=== PATIENT | female | born 1980 | race African-American/Black ===

== ENCOUNTER 2016-09-01 10:42 | Emergency (ER) | payer SELFPAY ==
[2016-09-01] VITALS (7 sets, daily range): BP systolic 91–151; BP diastolic 57–101; PULSE 81–102; RESP 16; TEMP 97.8; O2SAT 99
[~2016-09-01] VITALS: Ht 165.1 cm; Wt 108.0 kg
[~2016-09-01 10:42] MED LIST: AMLO10TA2 PO; HYDR-3288 PO; HYDR25TA5 PO; IPRA0.02 NEB; ONDA1TAB16 PO; OXYC1TAB35 PO
[2016-09-01] MEDS ORDERED: SODIUM CHLOR 0.9% 1000 ML INJ 1,000 ML IV ONE (11:11)
[2016-09-01] MEDS ORDERED: ONDANSETRON HCL 4 MG/2 ML VIAL IVP ONE (11:15)
[2016-09-01] MEDS ORDERED: MECLIZINE HCL 25 MG TAB PO ONE (11:15)
[2016-09-01] MEDS ORDERED: SODIUM CHLORIDE 0.9% FLUSH 10 ML FLUSH IVF PRN (11:15)
--- NOTE | 2016-09-01 11:20 | PD ---
HPI Chief Complaint: Syncope/Near-Syncope Time Seen by Provider: 11:08 Travel History International Travel<30 days: No Contact w/Intl Traveler<30days: No Traveled to known affect area: No History of Present Illness HPI This is a 36-year-old female with history of hypertension and asthma who presents via EMS for evaluation of syncopal event. The patient reports that she was at [facility] today picking up her prescription for her blood pressure medication when she became dizzy. She describes the dizziness as a room spinning sensation. She was speaking someone when she had a syncopal event which was witnessed. There was no reported seizure activity. The patient is currently continuing to have a vertigo-like sensation. She also endorses a headache and chest pain which started yesterday. The headache is frontal, pressure type sensation, constant, no limiting factors. She has also had a sharp substernal chest pain that is worse with inspiration. She endorses some nausea as well as some shortness of breath, decreased appetite over the past few days. Denies vomiting, diarrhea or constipation, vaginal bleeding or discharge, abdominal pain, fevers or chills, recent illness. Last menstrual period was approximately 1.5 months ago. Denies history of DVT/PE. No other complaints. PFSH Past Medical History Asthma: Yes Blood Disorders: No Depression: Yes Heart Rhythm Problems: No Cancer: No Cardiac Catheterization: No Cardiovascular Problems: No High Cholesterol: No Chemotherapy: No Chest Pain: Yes (ATYPICAL) Congestive Heart Failure: No COPD: No Cerebrovascular Accident: No Diabetes: No Diminished Hearing: No Endocrine: No GERD: No Glaucoma: No Genitourinary: No Hepatitis: No Hiatal Hernia: No Hypertension: No Immune Disorder: No Kidney Stones: No Neurologic: No Psychiatric: No Respiratory: Yes (ASTHMA) Immunizations Current: Yes Myocardial Infarction: No Radiation Therapy: No Renal Failure: No Seizures: Yes ( CHILD. PER PT NONE ADULT) Sleep Apnea: No Thyroid Disease: No Ulcer: No : 2 Para: 0 Miscarriage: 2 : 0 Ectopic : Yes Tubal Ligation: Yes Past Surgical History Abdominal Surgery: No AICD: No Cardiac Surgery: No Coronary Artery Bypass Graft: No Ear Surgery: No Endocrine Surgery: No Eye Surgery: No Genitourinary Surgery: Yes (RIGHT OOPHORECTOMY R/T TUBAL 2000) Gynecologic Surgery: No Joint Replacement: No Oral Surgery: No Pacemaker: No Thoracic Surgery: No Social History Alcohol Use: No Tobacco Use: No Substance Use: No Allergies-Medications (Allergen,Severity, Reaction): Coded Allergies: No Known Allergies (Verified , 01/28/16) Reported Meds & Prescriptions Reported Meds & Active Scripts Active [place] (Hydrocodone-Acetaminophen) 7.5-325 mg Tab 1-2 Tab PO Q4H PRN Reported Ipratropium Neb (Ipratropium [place]) 0.5 Mg/2.5 Ml Amp 0.5 Mg NEB Q6HR NEB PRN Amlodipine (Amlodipine Besylate) 10 Mg Tab 10 Mg PO DAILY Hydrochlorothiazide 25 Mg Tab 25 Mg PO DAILY Ondansetron (Ondansetron HCl) 4 Mg Tab 1 Tab PO Q8HR PRN Oxycodone-Acetaminophen 7.5-325 mg Tab 1 Tab PO Q6H PRN Review of Systems Except as stated in HPI: all other systems reviewed are Neg Physical Exam Narrative GENERAL: Well-developed well-nourished female in no acute distress resting comfortably in hospital bed. SKIN: Warm and dry. HEAD: Atraumatic. Normocephalic. EYES: Pupils equal and round. No scleral icterus. No injection or drainage. ENT: No nasal bleeding or discharge. Mucous membranes pink and moist. NECK: Trachea midline. No JVD. CARDIOVASCULAR: Regular rate and rhythm. No murmur appreciated. RESPIRATORY: No accessory muscle use. Clear to auscultation. Breath sounds equal bilaterally. No crackles no wheezing or rhonchi GASTROINTESTINAL: Abdomen soft, non-tender, nondistended. Hepatic and splenic margins not palpable. MUSCULOSKELETAL: No obvious deformities. No edema and negative Homans NEUROLOGICAL: Awake and alert. No obvious cranial nerve deficits. Motor grossly within normal limits. Normal speech. PSYCHIATRIC: Appropriate mood and affect; insight and judgment normal. Data Data Last Documented VS Vital Signs Date Time Temp Pulse Resp B/P Pulse Ox O2 Delivery O2 Flow Rate FiO2 09/01/16 14:31 76 16 136/69 100 09/01/16 12:05 Room Air 09/01/16 11:50 97.8 Orders Electrocardiogram (09/01/16 10:45) Complete Blood Count With Diff (09/01/16 10:45) Comprehensive Metabolic Panel (09/01/16 10:45) Iv Access Insert/Monitor (09/01/16 10:45) Ed Urine Pregnancytest Poc (09/01/16 10:45) Magnesium (Mg) (09/01/16 11:11) Ckmb (Isoenzyme) Profile (09/01/16 11:11) Troponin I (09/01/16 11:11) Chest, Single Ap (09/01/16 11:11) Ct Brain W/O Iv Contrast(Rout) (09/01/16 11:11) Ecg Monitoring (09/01/16 11:11) Oximetry (09/01/16 11:11) Meclizine (Antivert) (09/01/16 11:15) Ondansetron Inj (Zofran Inj) (09/01/16 11:15) Sodium Chloride 0.9% Flush (Ns Flush) (09/01/16 11:15) Sodium Chlor 0.9% 1000 Ml Inj (Ns 1000 M (09/01/16 11:11) D-Dimer (09/01/16 11:11) CKMB (09/01/16 11:14) CKMB% (09/01/16 11:14) Orthostatic Vital Signs (09/01/16 13:09) Diet Regular Basic (09/01/16 Lunch) Labs Laboratory Tests Test 09/01/16 11:14 White Blood Count 7.4 TH/MM3 Red Blood Count 3.95 MIL/MM3 Hemoglobin 11.5 GM/DL Hematocrit 34.2 % Mean Corpuscular Volume 86.7 FL Mean Corpuscular Hemoglobin 29.1 PG Mean Corpuscular Hemoglobin 33.6 % Concent Red Cell Distribution Width 13.7 % Platelet Count 338 TH/MM3 Mean Platelet Volume 7.4 FL Neutrophils (%) (Auto) 67.5 % Lymphocytes (%) (Auto) 22.8 % Monocytes (%) (Auto) 9.0 % Eosinophils (%) (Auto) 0.3 % Basophils (%) (Auto) 0.4 % Neutrophils # (Auto) 5.0 TH/MM3 Lymphocytes # (Auto) 1.7 TH/MM3 Monocytes # (Auto) 0.7 TH/MM3 Eosinophils # (Auto) 0.0 TH/MM3 Basophils # (Auto) 0.0 TH/MM3 CBC Comment DIFF FINAL Differential Comment D-Dimer Quantitative (PE/DVT) 0.39 MG/L FEU Sodium Level 138 MEQ/L Potassium Level 4.5 MEQ/L Chloride Level 108 MEQ/L Carbon Dioxide Level 18.6 MEQ/L Anion Gap 11 MEQ/L Blood Urea Nitrogen 5 MG/DL Creatinine 0.76 MG/DL Estimat Glomerular Filtration 105 ML/MIN Rate Random Glucose 89 MG/DL Calcium Level 8.5 MG/DL Magnesium Level 2.0 MG/DL Total Bilirubin 0.8 MG/DL Aspartate Amino Transf 51 U/L (AST/SGOT) Alanine Aminotransferase 27 U/L (ALT/SGPT) Alkaline Phosphatase 88 U/L Total Creatine Kinase 188 U/L Creatine Kinase MB LESS THAN 0.5 NG/ML Troponin I LESS THAN 0.02 NG/ML Total Protein 7.8 GM/DL Albumin 3.6 GM/DL MDM Medical Decision Making Medical Screen Exam Complete: Yes Emergency Medical Condition: Yes Medical Record Reviewed: Yes Interpretation(s) EKG Chest x-ray CT brain CBC CMP Magnesium D-dimer Troponin CK Urine test Differential Diagnosis Dehydration, symptomatic anemia, electrolyte imbalance, arrhythmia, PE, subarachnoid hemorrhage, orthostatic hypotension, hypoglycemia Narrative Course This is a 36-year-old female who has been some experiencing a headache and chest pain since yesterday. In addition she has had a decreased appetite over the past few days. Today she is having a vertigo sensation at [facility] and had a witnessed syncopal event. The patient is currently hemodynamically stable. The patient will be placed in the she's monitoring and pulse oximetry. A 12- lead EKG will be obtained. The patient be given IV fluids, meclizine and Zofran. Plan is for basic lab work, CT of the brain and chest x-ray. 1230: When the patient was moved off of the ambulance on into [facility], the case was signed off to Arnel Nelson PA-C for disposition. Procedures EKG Prior to Arrival: Yes Raulito Lopes Sep 01, 2016 11:20
[2016-09-01 12:21] LABS: BASOPHIL % 0.4 % (0.0-2.0); EOSINOPHIL % 0.3 % (0.0-4.0); HEMATOCRIT 34.2 % (35.0-46.0); HEMO FLAGS DIFF FINAL; LYMPH % 22.8 % (9.0-44.0); LYMPHOCYTE # 1.7 TH/MM3 (1.0-4.8); MEAN CELL VOLUME 86.7 FL (80.0-100.0); MEAN CORPUSCULAR HEMOGLOBIN 29.1 PG (27.0-34.0); MEAN CORPUSCULAR HGB CONC 33.6 % (32.0-36.0); NEUT % 67.5 % (16.0-70.0); PLATELET COUNT 338 TH/MM3 (150-450); RED BLOOD COUNT 3.95 MIL/MM3 (4.00-5.30); RED CELL DISTRIBUTION WIDTH 13.7 % (11.6-17.2); WHITE BLOOD COUNT 7.4 TH/MM3 (4.0-11.0)
--- NOTE | 2016-09-01 12:30 | PD ---
Physical Exam Date Seen by Provider: Sep 01, 2016 Time Seen by Provider: 12:28 Narrative 12:28 hrs. Patient care was assumed by myself after workup was started by Raulito Lopes PAC. Labs are currently pending including head CT and cardiac panel as well as electrolytes. Please see his history and physical. After second set of orthostatics, it is discovered that the patient took one of her boyfriend's blood pressure medications this morning as she was out on her own. She is unsure what type of blood pressure medication as well as. Patient was refilling her 2 blood pressure medications when she had the syncopal episode. Data Data Last Documented VS Vital Signs Date Time Temp Pulse Resp B/P Pulse Ox O2 Delivery O2 Flow Rate FiO2 09/01/16 13:23 91/57 09/01/16 12:05 81 16 99 Room Air 09/01/16 11:50 97.8 Orders Electrocardiogram (09/01/16 10:45) Complete Blood Count With Diff (09/01/16 10:45) Comprehensive Metabolic Panel (09/01/16 10:45) Iv Access Insert/Monitor (09/01/16 10:45) Ed Urine Pregnancytest Poc (09/01/16 10:45) Magnesium (Mg) (09/01/16 11:11) Ckmb (Isoenzyme) Profile (09/01/16 11:11) Troponin I (09/01/16 11:11) Chest, Single Ap (09/01/16 11:11) Ct Brain W/O Iv Contrast(Rout) (09/01/16 11:11) Ecg Monitoring (09/01/16 11:11) Oximetry (09/01/16 11:11) Meclizine (Antivert) (09/01/16 11:15) Ondansetron Inj (Zofran Inj) (09/01/16 11:15) Sodium Chloride 0.9% Flush (Ns Flush) (09/01/16 11:15) Sodium Chlor 0.9% 1000 Ml Inj (Ns 1000 M (09/01/16 11:11) D-Dimer (09/01/16 11:11) CKMB (09/01/16 11:14) CKMB% (09/01/16 11:14) Orthostatic Vital Signs (09/01/16 13:09) Diet Regular Basic (09/01/16 Lunch) Labs Laboratory Tests Test 09/01/16 11:14 White Blood Count 7.4 TH/MM3 Red Blood Count 3.95 MIL/MM3 Hemoglobin 11.5 GM/DL Hematocrit 34.2 % Mean Corpuscular Volume 86.7 FL Mean Corpuscular Hemoglobin 29.1 PG Mean Corpuscular Hemoglobin 33.6 % Concent Red Cell Distribution Width 13.7 % Platelet Count 338 TH/MM3 Mean Platelet Volume 7.4 FL Neutrophils (%) (Auto) 67.5 % Lymphocytes (%) (Auto) 22.8 % Monocytes (%) (Auto) 9.0 % Eosinophils (%) (Auto) 0.3 % Basophils (%) (Auto) 0.4 % Neutrophils # (Auto) 5.0 TH/MM3 Lymphocytes # (Auto) 1.7 TH/MM3 Monocytes # (Auto) 0.7 TH/MM3 Eosinophils # (Auto) 0.0 TH/MM3 Basophils # (Auto) 0.0 TH/MM3 CBC Comment DIFF FINAL Differential Comment D-Dimer Quantitative (PE/DVT) 0.39 MG/L FEU Sodium Level 138 MEQ/L Potassium Level 4.5 MEQ/L Chloride Level 108 MEQ/L Carbon Dioxide Level 18.6 MEQ/L Anion Gap 11 MEQ/L Blood Urea Nitrogen 5 MG/DL Creatinine 0.76 MG/DL Estimat Glomerular Filtration 105 ML/MIN Rate Random Glucose 89 MG/DL Calcium Level 8.5 MG/DL Magnesium Level 2.0 MG/DL Total Bilirubin 0.8 MG/DL Aspartate Amino Transf 51 U/L (AST/SGOT) Alanine Aminotransferase 27 U/L (ALT/SGPT) Alkaline Phosphatase 88 U/L Total Creatine Kinase 188 U/L Creatine Kinase MB LESS THAN 0.5 NG/ML Troponin I LESS THAN 0.02 NG/ML Total Protein 7.8 GM/DL Albumin 3.6 GM/DL [facility] Medical Record Reviewed: Yes Supervised Visit with MEGAN: Yes Differential Diagnosis Syncope. Cardiac syndrome. Hypertensive crisis. Electrolyte imbalance. PE. . Narrative Course CBC is unremarkable. CMP is unremarkable. Troponin is less than 0.02. D-dimer is 0.39. EKG shows sinus rhythm with first-degree AV block which appears unremarkable compared to previous EKG in 2013. Chest x-ray shows no acute process. Urine test is negative. Head CT shows no acute findings per radiologist. Patient is noted to have calcified meningioma which is unchanged from previous. Patient was somewhat orthostatic with testing. Further questioning the patient shows her to have not eaten in the last 2 days due to upset with her boyfriend. Patient states that she does feel safe, and denies depression, suicidal ideation or homicidal ideation. Patient is given a full 1000 mL normal saline bolus as well as a diet tray. Repeat orthostatics are performed at 1400 hrs. Patient is felt stable for discharge home. Patient should not take other people's medication ever again in the future. Patient should not take her blood pressure medications until tomorrow morning as prescribed. Patient is to follow up with local primary care physician as needed. Diagnosis Primary Impression: Syncope and collapse Referrals: [facility] Patient Instructions: General Instructions, Syncope (ED) Additional Instruction: Patient is given a full 1000 mL normal saline bolus as well as a diet tray. Repeat orthostatics are performed at 1400 hrs. Patient is felt stable for discharge home. Patient should not take other people's medication ever again in the future. Patient should not take her blood pressure medications until tomorrow morning as prescribed. Patient is to follow up with local primary care physician as needed. Med/Other Pt SpecificInfo: No Meds Exist/No RX given Disposition: 01 DISCHARGE HOME Condition: Stable Arnel Nelson Sep 01, 2016 12:30
[2016-09-01 12:45] LABS: ALT (GPT) 27 U/L (10-53); ANION GAP 11 MEQ/L (5-15); AST (GOT) 51 U/L (15-37); BICARBONATE 18.6 MEQ/L (21.0-32.0); BLOOD UREA NITROGEN 5 MG/DL (7-18); CHLORIDE 108 MEQ/L (98-107); GLOMERULAR FILTRATION RATE 105 ML/MIN (>89); POTASSIUM 4.5 MEQ/L (3.5-5.1); SODIUM (NA) 138 MEQ/L (136-145)
[2016-09-01 12:47] LABS: ALKALINE PHOSPHATASE 88 U/L (45-117); CREATINE KINASE 188 U/L (26-192); TOTAL BILIRUBIN ADULT 0.8 MG/DL (0.2-1.0)
--- NOTE | 2016-09-01 12:57 | RADRPT ---
EXAM DATE/TIME: 09/01/2016 11:51 [facility] COMPARISON: CHEST SINGLE AP, November 13, 2012, 10:00. INDICATIONS : Chest pain MEDICAL HISTORY : asthma SURGICAL HISTORY : None. ENCOUNTER: Initial ACUITY: 1 day PAIN SCORE: 9/10 LOCATION: Bilateral chest FINDINGS: A single view of the chest demonstrates the lungs to be symmetrically aerated without evidence of mas s, infiltrate or effusion. The cardiomediastinal contours are unremarkable. Osseous structures are intact. CONCLUSION: No acute disease. Galen Jolley Jr., MD on September 01, 2016 at 12:55 Board Certified Radiologist. This report was verified electronically.
[2016-09-01 13:08] LABS: CKMB LESS THAN 0.5 NG/ML (0.5-3.6)
--- NOTE | 2016-09-01 13:16 | RADRPT ---
EXAM DATE/TIME: 09/01/2016 13:03 [facility] COMPARISON: No previous studies available for comparison. INDICATIONS : Dizziness. RADIATION DOSE: 48.55 CTDIvol (mGy) MEDICAL HISTORY : Seizures. Hypertension. SURGICAL HISTORY : Tubal ligation. ENCOUNTER: Initial ACUITY: 1 day PAIN SCALE: 0/10 LOCATION: Bilateral cranial TECHNIQUE: Multiple contiguous axial images were obtained of the head. Using automated exposure control and adj ustment of the mA and/or kV according to patient size, radiation dose was kept as low as reasonably a chievable to obtain optimal diagnostic quality images. DICOM format image data is available electro nically for review and comparison. FINDINGS: CEREBRUM: The ventricles are normal for age. No evidence of midline shift, mass lesion, hemorrhage or acute in farction. No extra-axial fluid collections are seen. There is a calcified extra-axial mass medial as pect of the left middle cranial fossa consistent with probable calcified meningioma. This measures 1. 4 cm in greatest dimension and is stable. POSTERIOR FOSSA: The cerebellum and brainstem are intact. The 4th ventricle is midline. The cerebellopontine angle i s unremarkable. EXTRACRANIAL: The visualized portion of the orbits is intact. SKULL: The calvaria is intact. No evidence of skull fracture. CONCLUSION: 1. No acute disease. 2. Stable calcified extra-axial mass along the medial aspect of the left middle cranial fossa consist ent with probable calcified meningioma measuring 1.4 cm. Pawan Jensen MD on September 01, 2016 at 13:11 Board Certified Radiologist. This report was verified electronically.
--- NOTE | 2016-09-02 12:10 | EKG ---
Date Performed: 09/01/2016 Time Performed: 11:30:00 PTAGE: 36 years EKG: Sinus rhythm WITH FIRST DEGREE AV BLOCK LOW QRS VOLTAGE IN PRECORDIAL LEADS ABNORMAL ECG INTERPRETATION BASED ON A DEFAULT AGE OF 40 YEARS PREVIOUS TRACING : 11/13/2012 12.54 Compared to prior tracing no significant change DOCTOR: Jonathan Valadez Interpretating Date/Time 09/02/2016 12:08:15
== END 2016-09-01 14:38 | disposition home or self-care (01) ==
LOC: NEPC 10:42
DX: R55 Syncope and collapse (principal); I44.0 Atrioventricular block, first degree; R51 Headache; R07.89 Other chest pain; R42 Dizziness and giddiness; R11.0 Nausea; R06.02 Shortness of breath; R94.31 Abnormal electrocardiogram [ECG] [EKG]; I10 Essential (primary) hypertension
CPT/HCPCS: 70450; 71010; 80053; 82550; 82552; 83735; 84484; 84703; 85025; 85379; 93005; 96374; 99285; J2405; J7030